=== PATIENT | male | born 1945 | race African-American/Black ===

== ENCOUNTER 2020-03-05 11:46 | Emergency (ER) | payer OTHER ==
[~2020-03-05] VITALS: Ht 177.8 cm; Wt 84.1 kg
[2020-03-05 11:47] VITALS: BP 145/97
== END 2020-03-05 13:03 | disposition left against medical advice (07) ==
LOC: EMS 11:47
DX: Z20.1 Contact with and (suspected) exposure to tuberculosis (principal); Z53.21 Procedure and treatment not carried out due to patient leaving prior to being seen by health care provider